=== PATIENT | female | born 1990 | race Caucasian/White ===

== ENCOUNTER 2020-08-05 15:35 | Emergency (ER) | payer OTHER ==
[2020-08-05 17:26] LABS: HEMOGLOBIN 15.3 gm/dl (12.3-15.3); RED BLOOD COUNT 4.73 M/UL (4.00-5.10); WHITE BLOOD COUNT 9.4 K/UL (4.5-11.0)
[2020-08-05 18:14] LABS: BUN/CREATININE RATIO 13 (0-10)
[2020-08-05] MEDS ORDERED: LOPRESSOR 25 MG25 MG PO (19:53)
== END 2020-08-05 20:07 | disposition home or self-care (01) ==
LOC: ER1 15:35
PROVIDERS: Physician Assistant
DX: R00.2 Palpitations (principal); E03.9 Hypothyroidism, unspecified; F17.290 Nicotine dependence, other tobacco product, uncomplicated; Z88.2 Allergy status to sulfonamides
CPT/HCPCS: 71046; 80053; 82550; 82553; 83874; 84439; 84443; 84484; 85025; 85379; 93005; 99285; J7030